=== PATIENT | female | born 1975 | race Caucasian/White ===

== ENCOUNTER 2020-03-09 11:43 | Emergency (ER) | payer OTHER | END 2020-03-09 12:15 | disposition home or self-care (01) | LOC: JVIRT 11:43 | DX: Z11.52 Encounter for screening for COVID-19 (principal); R51.9 Headache, unspecified | CPT/HCPCS: C9803; G2012-GT; U0003 ==

== ENCOUNTER 2020-03-20 09:58 | Emergency (ER) | payer OTHER ==
[2020-03-20 10:04] VITALS: BP 123/72; PULSE 65; TEMP 98.2; BMI 29.9
[2020-03-20 11:30] LABS: EPITHELIAL CELLS FEW /hpf
== END 2020-03-20 11:30 | disposition home or self-care (01) ==
LOC: FER 09:58
DX: U07.1 COVID-19 (principal)
CPT/HCPCS: 81003; 81015; 87086; 87186; 87804; 99284-25; C9803; U0003

== ENCOUNTER 2024-06-24 06:00 | Day surgery (SDC) | payer OTHER ==
[2024-06-17 14:47] VITALS: BMI 34.6
[2024-06-24 09:12] VITALS: TEMP 97.8
[2024-06-24 10:02] VITALS: BP 123/69; PULSE 59; RESP 17
== END 2024-06-24 10:10 | disposition home or self-care (01) ==
LOC: JASU-ENDO 06:00
PROVIDERS: ATTEND Internal Medicine Gastroenterology
PROC: 0DB48ZX Excision of Esophagogastric Junction, Via Natural or Artificial Opening Endoscopic, Diagnostic (ICD-10-PCS; 2024-06-24)
PROC: 0DB78ZX Excision of Stomach, Pylorus, Via Natural or Artificial Opening Endoscopic, Diagnostic (ICD-10-PCS; 2024-06-24)
PROC: 0DB68ZX Excision of Stomach, Via Natural or Artificial Opening Endoscopic, Diagnostic (ICD-10-PCS; 2024-06-24)
PROC: 0DBP8ZX Excision of Rectum, Via Natural or Artificial Opening Endoscopic, Diagnostic (ICD-10-PCS; principal; 2024-06-24 08:00)
DX: Z12.11 Encounter for screening for malignant neoplasm of colon (principal); D12.8 Benign neoplasm of rectum; K57.30 Diverticulosis of large intestine without perforation or abscess without bleeding; K64.8 Other hemorrhoids; K21.00 Gastro-esophageal reflux disease with esophagitis, without bleeding; K25.9 Gastric ulcer, unspecified as acute or chronic, without hemorrhage or perforation; K29.50 Unspecified chronic gastritis without bleeding
CPT/HCPCS: 88305-TC; 88342-TC

== ENCOUNTER 2024-09-23 04:08 | Emergency (ER) | payer OTHER ==
[2024-09-23 04:16] VITALS: BMI 34.9
[2024-09-23] MEDS ORDERED: AMPICILLIN NA/SULBACTAM NA 1.5 GM VIAL ONE (05:32)
[2024-09-23] MEDS: AMPICILLIN NA/SULBACTAM NA 1.5 GM in SODIUM CHLORIDE 100 ML IVPB ONE (05:44)
[2024-09-23] MEDS ORDERED: ACETAMINOPHEN INJECTION 100 ML ONE (06:24)
[2024-09-23] MEDS: ACETAMINOPHEN 1000 MG/100 ML BAG IVPB ONE (06:25)
[2024-09-23 06:54] LABS: ABSOLUTE IMMATURE GRANULOCYTES 0.09 x10^3/uL (0.0-0.031); BASOPHILS # 0.05 x10^3/uL (0.01-0.08); EOSINOPHIL % 1.7 % (0.7-5.8); EOSINOPHILS # 0.28 x10^3/uL (0.04-0.36); MCHC 33.4 g/dl (32.2-35.5); MEAN CELL VOLUME 88.9 fl (79.4-94.8); MEAN PLT VOLUME 10.4 fl (9.4-12.3); MONOCYTE # 0.66 x10^3/uL (0.24-0.86); MONOCYTE % 3.9 % (4.7-12.5); RDW 13.3 % (12.2-17.1)
[2024-09-23 07:36] LABS: LACTIC ACID 2.1 mmol/L (0.4-2.0)
[2024-09-23 07:37] LABS: GLUCOSE,RANDOM 103.0 mg/dL (74-106)
[2024-09-23 07:38] LABS: SGPT/ALT 40.0 U/L (13-61)
[2024-09-23 07:39] LABS: CREATININE 0.6 mg/dL (0.55-1.3); SGOT/AST 17.0 U/L (15-37)
[2024-09-23 07:40] LABS: ALK PHOS 61.0 U/L (45-117); CO2 24.0 mmol/L (21-32); TOT PROT 6.7 g/dl (6.4-8.2)
[2024-09-23] MEDS ORDERED: SODIUM CHLORIDE 0.9% 500 ML INFUS.BAG IV ONE (07:47)
[2024-09-23] MEDS: SODIUM CHLORIDE 0.9% 1000 ML INFUS.BAG IV ONE (07:50)
[2024-09-23] MEDS ORDERED: VANCOMYCIN 1,000 MG VIAL (RESTRICTED TO ID ONLY) ONE (07:52)
[2024-09-23] MEDS: VANCOMYCIN 1,000 MG in DEXTROSE 5%-WATER - 250 ML IVPB ONE (07:53)
[2024-09-23 09:05] LABS: ERYTHROCYTE SEDIMENTATION RATE 9 mm/hr (0-20)
[2024-09-23] MEDS ORDERED: AMPICILLIN NA/SULBACTAM NA 3 GM VIAL ONE (11:35)
[2024-09-23] MEDS: AMPICILLIN NA/SULBACTAM NA 3 GM in SODIUM CHLORIDE 100 ML IVPB ONE (11:37)
[2024-09-23 12:00] VITALS: RESP 16
[2024-09-23 12:55] LABS: LACTIC ACID 2.2 mmol/L (0.4-2.0)
[2024-09-23] MEDS: KETOROLAC TROMETHAMINE 15 MG/ML VIAL IVPUSH ONE (14:02)
[2024-09-23] MEDS ORDERED: KETOROLAC TROMETHAMINE 15 MG/ML VIAL ONE (14:04)
[2024-09-23 14:15] VITALS: BP 179/77; PULSE 76; TEMP 98.4
== END 2024-09-23 14:20 | disposition home or self-care (01) ==
LOC: FER 04:08
PROC: 3E03329 Introduction of Other Anti-infective into Peripheral Vein, Percutaneous Approach (ICD-10-PCS; principal; 2024-09-23)
PROC: 3E03329 Introduction of Other Anti-infective into Peripheral Vein, Percutaneous Approach (ICD-10-PCS; 2024-09-23)
PROC: 3E033NZ Introduction of Analgesics, Hypnotics, Sedatives into Peripheral Vein, Percutaneous Approach (ICD-10-PCS; 2024-09-23)
PROC: 3E0333Z Introduction of Anti-inflammatory into Peripheral Vein, Percutaneous Approach (ICD-10-PCS; 2024-09-23)
PROC: 3E03329 Introduction of Other Anti-infective into Peripheral Vein, Percutaneous Approach (ICD-10-PCS; 2024-09-23)
DX: L03.116 Cellulitis of left lower limb (principal)
CPT/HCPCS: 36415; 80053; 83605; 85025; 85651; 86140; 87040; 87637-QW; 96365; 96367; 96375; 99284-25